=== PATIENT | female | born 1980 | race Caucasian/White ===

== ENCOUNTER 2020-07-10 03:31 | Inpatient (IN) | payer BC ==
[2020-07-10] MEDS ORDERED: Sodium Chloride 0.9% 10 ML Syringe FLUSH PRN (03:35)
[2020-07-10] MEDS ORDERED: Sodium Chloride 0.9% 10 ML SDV IV PRN (03:35)
[2020-07-10] MEDS ORDERED: Citric Acid/Sodium Citrate Solution 30 ML Cup PO ONE (03:35)
[2020-07-10] MEDS ORDERED: Sodium Chloride 0.9% 2.5 ML Syringe FLUSH PRN (03:35)
[2020-07-10] MEDS ORDERED: Oxytocin/0.9 % Sodium Chloride 30 UNIT/500 ML BAG IV SCH (03:45)
[2020-07-10] MEDS ORDERED: Lactated Ringers 1,000 ML IV SCH ×2 (03:45→09:00)
[2020-07-10] MEDS ORDERED: ceFAZolin 1 GM in Premix Bag 1 BAG IV ONE (05:30)
[2020-07-10] MEDS ORDERED: ceFAZolin 1 GM Vial ONE (07:17)
[2020-07-10] MEDS ORDERED: ePHEDrine 50 MG/ML SDV ONE (07:17)
[2020-07-10] MEDS ORDERED: Oxytocin 10 Units/1 ML SDV ONE (07:17)
[2020-07-10] MEDS ORDERED: Sodium Chloride 0.9% 20 ML ONE (07:17)
[2020-07-10] MEDS ORDERED: Ondansetron 4 MG/2 ML SDV ONE (07:17)
[2020-07-10] MEDS ORDERED: Morphine PF 10 MG/10 ML SDV ONE (07:21)
--- NOTE | 2020-07-10 07:45 | PCM.PREANE ---
Preanesthetic Assessment - Anesthesia/Transfusion/Family Hx Anesthesia History: Prior Anesthesia Without Reaction Other Type of Anesthesia Reaction Comment: Shay any known problem in past, no known family hx: problems Family History of Anesthesia Reaction: No Transfusion History: No Prior Transfusion(s) - Review of Systems General: No Symptoms Pulmonary: No Symptoms Cardiovascular: No Symptoms Gastrointestinal: No Symptoms Neurological: No Symptoms Other: Reports: None - Physical Assessment NPO Status Date: 07/09/20 Height: 5 ft 7.5 in Weight: 78.018 kg ASA Class: 2 Mental Status: Alert & Oriented x3 Airway Class: Mallampati = 1 Dentition: Reports: Normal Dentition ROM/Head Extension: Full Lungs: Clear to Auscultation, Normal Respiratory Effort Cardiovascular: Regular Rate, Regular Rhythm - Lab Values: Laboratory Last Values WBC 7.61 K/uL (4.0-11.0) 07/10/20 06:13 RBC 3.86 M/uL (4.30-5.90) L 07/10/20 06:13 Hgb 12.4 g/dL (12.0-16.0) 07/10/20 06:13 Hct 36.6 % (36.0-46.0) 07/10/20 06:13 MCV 94.8 fL (80.0-98.0) 07/10/20 06:13 MCH 32.1 pg (27.0-32.0) H 07/10/20 06:13 MCHC 33.9 g/dL (31.0-37.0) 07/10/20 06:13 RDW Std Deviation 44.5 fl (28.0-62.0) 07/10/20 06:13 RDW Coeff of Tereza 13 % (11.0-15.0) 07/10/20 06:13 Plt Count 141 K/uL (150-400) L 07/10/20 06:13 MPV 11.70 fL (7.40-12.00) 07/10/20 06:13 Nucleated RBC % 0.0 /100WBC 07/10/20 06:13 Nucleated RBCs # 0 K/uL 07/10/20 06:13 Blood Type A NEGATIVE 07/10/20 06:13 Antibody Screen POSITIVE 07/10/20 06:13 - Allergies Allergies/Adverse Reactions: Allergies Allergy/AdvReac Type Severity Reaction Status Date / Time No Known Allergies Allergy Verified 08/11/14 06:04 - Anesthesia Plan Pre-Op Medication Ordered: Antacids - Acknowledgements Anesthesia Type Planned: Spinal Pt an Appropriate Candidate for the Planned Anesthesia: Yes Alternatives and Risks of Anesthesia Discussed w Pt/Guardian: Yes Pt/Guardian Understands and Agrees with Anesthesia Plan: Yes Additional Comments: repeat elective c section PLAN: spinal with duramorph PreAnesthesia Questionnaire HEENT History: Reports: Other (See Below) Other HEENT History: wears glasses Cardiovascular History: Reports: None Respiratory History: Reports: None Gastrointestinal History: Reports: None Genitourinary History: Reports: Other (See Below) Other Genitourinary History: hx of kidney biopsy, "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, not since first , [employer] History: Reports: Musculoskeletal History: Reports: None Neurological History: Reports: None Psychiatric History: Reports: None Endocrine/Metabolic History: Reports: None Hematologic History: Reports: None Immunologic History: Reports: None Oncologic (Cancer) History: Reports: None Dermatologic History: Reports: None - Infectious Disease History Infectious Disease History: Reports: Chicken Pox - Past Surgical History Head Surgeries/Procedures: Reports: None HEENT Surgical History: Reports: None Cardiovascular Surgical History: Reports: None Respiratory Surgical History: Reports: None GI Surgical History: Reports: None Female Surgical History: Reports: Section, Other (See Below) Other Female Surgeries/Procedures: laparotomy for ovarian cystectomy, laparoscopy with ovarian wedge resection, Endocrine Surgical History: Reports: None Neurological Surgical History: Reports: None Musculoskeletal Surgical History: Reports: None Oncologic Surgical History: Reports: None Dermatological Surgical History: Reports: None - SUBSTANCE USE Tobacco Use Status *Q: Never Tobacco User - HOME MEDS Home Medications: Home Meds Ascorbic Acid [Vitamin C] 1 tab PO DAILY 08/09/14 [History] Calcium Carbonate/Vitamin D3 [Calcium 600 + Vit D 400] 1 tab PO DAILY 08/09/14 [History] Lactobacillus Acidophilus [Probiotic] 1 cap PO ASDIRECTED 08/09/14 [History] [place]-3S/DHA/Epa/Fish Oil/D3 [Fish Oil + D3 Softgel] 1 cap PO DAILY 08/09/14 [History] PNV95/Ferrous Fumarate/FA [ Multivitamins] 1 tab PO DAILY 08/09/14 [History] Vitamin B Complex 1 tab PO DAILY 08/09/14 [History] Calmag 1 tab PO DAILY 07/04/20 [History] Cyanocobalamin (Vitamin B12) [Vitamin B12] 210 mg PO DAILY 07/04/20 [History] - CURRENT (IN HOUSE) MEDS Current Meds: Current Medications Oxytocin/Sodium Chloride (Oxytocin 30 Unit/500 Ml-Ns) 30 unit in 500 mls @ 250 mls/hr IV TITRATE [facility]AM[facility] Lactated Ringer's (Ringers, Lactated) 1,000 mls @ 500 mls/hr IV BOLUS MAMADOU Last Admin: 07/10/20 07:40 Dose: 999 mls/hr Documented by: Sodium Chloride (Saline Flush) 10 ml FLUSH ASDIRECTED PRN PRN Reason: Keep Vein Open Sodium Chloride (Saline Flush) 2.5 ml FLUSH ASDIRECTED PRN PRN Reason: Keep Vein Open Sodium Chloride (Normal Saline) 10 ml IV ASDIRECTED PRN PRN Reason: IV Use Discontinued Medications Cefazolin Sodium (Ancef) Confirm Administered Dose 1 gm .ROUTE .STK-MED ONE Stop: 07/10/20 07:18 Citric Acid/Sodium Citrate (Bicitra Solution) 30 ml PO ONETIME ONE Stop: 07/10/20 03:36 Ephedrine Sulfate (Ephedrine Sulfate) Confirm Administered Dose 50 mg .ROUTE .STK-MED ONE Stop: 07/10/20 07:18 Cefazolin Sodium/Dextrose 1 gm (/ Premix) 50 mls @ 100 mls/hr IV ONETIME ONE Stop: 07/10/20 05:59 Sodium Chloride (Normal Saline) Confirm Administered Dose 20 mls @ as directed .ROUTE .STK-MED ONE Stop: 07/10/20 07:18 Morphine Sulfate (Duramorph Pf) Confirm Administered Dose 10 mg .ROUTE .STK-MED ONE Stop: 07/10/20 07:22 Ondansetron HCl (Zofran) Confirm Administered Dose 4 mg .ROUTE .STK-MED ONE Stop: 07/10/20 07:18 Oxytocin (Pitocin) Confirm Administered Dose 30 unit .ROUTE .STK-MED ONE Stop: 07/10/20 07:18
[2020-07-10] MEDS ORDERED: Acetaminophen/oxyCODONE 325-5 MG Tab PO PRN ×2 (07:47→08:59)
[2020-07-10] MEDS ORDERED: fentaNYL 100 MCG/2 ML SDV IVPUSH PRN (07:47)
[2020-07-10] MEDS ORDERED: Ketorolac 30 MG/ML SDV ONE (08:36)
[2020-07-10] MEDS ORDERED: diphenhydrAMINE 50 MG/ML SDV IVPUSH PRN (08:59)
[2020-07-10] MEDS ORDERED: Lanolin 100% Cream 7 GM Tube TOP PRN (08:59)
[2020-07-10] MEDS ORDERED: Methylergonovine 0.2 MG/1 ML Amp IM PRN (08:59)
[2020-07-10] MEDS ORDERED: Misoprostol 200 MCG Tab RECTAL PRN (08:59)
[2020-07-10] MEDS ORDERED: Ondansetron 4 MG/2 ML SDV IVPUSH PRN (08:59)
[2020-07-10] MEDS ORDERED: Ibuprofen 800 MG Tab PO PRN (08:59)
[2020-07-10] MEDS ORDERED: Bisacodyl 10 MG Supp RECTAL PRN (08:59)
[2020-07-10] MEDS ORDERED: Tranexamic Acid 1,000 MG in Sodium Chloride 0.9% 100 ML IV PRN (08:59)
[2020-07-10] MEDS ORDERED: Oxytocin 10 Units/1 ML SDV IM PRN (08:59)
--- NOTE | 2020-07-10 08:59 | PCM.OPNOTE ---
- General Post-Op/Procedure Note Date of Surgery/Procedure: 07/10/20 Operative Procedure(s): Repeat LTCS Findings: Viable male APGARs 8, 9 weight 3900 gm. Delivery intact placenta with3V cord Pre Op Diagnosis: 39 week IUP. Previous c section x3, desires repeat Post-Op Diagnosis: Same Anesthesia Technique: Spinal Primary Surgeon: Urvashi Hunter Weir Fisher: Deidra Avila Fluid Replacement, Intraop: 1,200 EBL in mLs: 800 Complications: none known Condition: Good Free Text/Narrative:: Dictation [id number]
[2020-07-10] MEDS: Ketorolac 30 MG/ML SDV IVPUSH SCH ×3 (09:28→21:17)
[2020-07-10] MEDS: Nalbuphine 10 MG/1 ML Vial IVPUSH PRN ×2 (11:26→18:16)
--- NOTE | 2020-07-10 11:34 | PCM.POSTAN ---
POST ANESTHESIA ASSESSMENT - MENTAL STATUS Mental Status: Alert, Oriented - VITAL SIGNS Vital Signs: Last Vital Signs Temp 96.8 F L 07/10/20 08:52 Pulse 73 07/10/20 09:23 Resp 12 07/10/20 09:23 BP 107/57 L 07/10/20 09:23 Pulse Ox 96 07/10/20 09:23 - RESPIRATORY Respiratory Status: Respiratory Rate WNL, Airway Patent, O2 Saturation Stable - CARDIOVASCULAR CV Status: Pulse Rate WNL, Blood Pressure Stable - GASTROINTESTINAL GI Status: No Symptoms - POST OP HYDRATION Hydration Status: Adequate & Stable
--- NOTE | 2020-07-10 15:07 | OR ---
SURGEON: Urvashi Hunter M.D. DATE OF PROCEDURE: 07/10/2020 PREOPERATIVE DIAGNOSES: 1. A 39-week intrauterine . 2. Previous section x3, desires repeat. POSTOPERATIVE DIAGNOSES: 1. A 39-week intrauterine . 2. Previous section x3, desires repeat. PROCEDURE: Repeat low transverse section. PRIMARY SURGEON: Urvashi Hunter MD DIGITAL ANALYST: Parish Avila, DISTRIBUTION SYSTEMS SUPERINTENDENT, or first assist registered nurse. ANESTHESIA: Spinal. ESTIMATED BLOOD LOSS: 600 mL. COMPLICATIONS: None known. FINDINGS: Viable male. score of 8 at one minute, 9 at five minutes. Weight of 3900 g. Delivery, intact placenta, 3-vessel cord. DISPOSITION: Infant to nursery, mom in PACU, stable. PROCEDURE DETAILS: Debra is a 40-year-old, G4, P3, at 39 weeks' gestational age, who presents today for scheduled repeat delivery. Risks of procedure have been discussed. Proper consent obtained. She is COVID negative. The patient was taken to the operating room where she underwent spinal anesthetic, was then placed in dorsal supine position with leftward tilt. SCDs to lower extremities. Isaac to gravity. Was prepped and draped in usual sterile fashion. Received Ancef prophylactically. Time-out was performed. After being prepped and draped in usual sterile fashion, anesthesia was tested, found to be adequate. Previous Pfannenstiel scar was now excised. Subcutaneous tissue was incised down to the level of the rectus fascia, which was incised in midline, lateralized on either side sharply and bluntly. The superior aspect of the fascia was tented upward, dissected sharply and bluntly away from underlying muscle. There was a fair amount of dense scar tissue along the fascia to the rectus muscle noted given previous surgery. This was repeated on the inferior aspect of the fascia. Rectus muscles were in the midline sharply and bluntly. Peritoneum was entered and dissected sharply. The rectus muscles and peritoneum were now lateralized bluntly. Uterine position and position palpated. Self-retaining retractor was gently placed. Uterovesical reflection was visualized. Bladder flap was created sharply and bluntly. Bladder was mobilized away from lower uterine segment. Low transverse hysterotomy was now performed. Uterine cavity was entered with blunt-ended scalpel. Hysterotomy was lateralized bluntly. Clear amniotic fluid was returned with amniotomy. A face presentation was noted. Therefore, the head was gently rotated to a flexed position and delivered followed by delivery of anterior shoulder, posterior shoulder, and remainder of the body without difficulty. The 's oropharynx and nares were bulb suctioned. The was crying and vigorous. Cord was clamped x2 and cut. was handed off to attending nursery staff. Cord arterial, cord venous, cord blood sampling obtained. The placenta was now delivered. There was a uterine vessel on the left side that was bleeding briskly. This was grasped with ring forceps and bleeding was controlled. The hysterotomy was now repaired using 0 Vicryl in continuous running locked fashion. Area along the uterine vessel that was bleeding was replicated with two [id number] sutures, hemostasis thereafter evident. Remainder of the hysterotomy now continued to be closed using 0 Vicryl continuous running locked fashion followed by a re-imbricating layer. Area of oozing on the right lateral aspect was replicated with [id number] suture, hemostasis evident. The posterior aspect of the uterus inspected, no defects or hematomas found be forming. Region was well irrigated, suction dried. The colonic gutters were cleared of all clot and debris, well irrigated, suction dried. Hysterotomy once again inspected, found to be hemostatic except for a few areas of serosal oozing, which were cauterized. The lower uterine segment was fairly thin given the previous sections at this time. Self-retaining tractor now gently removed. Bladder blade was now placed. Hysterotomy once inspected, found to be hemostatic. Rectus muscles and peritoneum were now reapproximated using 0 Vicryl in inverted mattress suture technique. Posterior aspect of the fascia and anterior aspect of the muscle were now closely inspected, any areas of oozing were cauterized. The rectus fascia was reapproximated using 0 Vicryl in continuous running fashion, beginning laterally on each side and meeting in the midline. Subcutaneous tissues were well irrigated, suction dried. Region was copiously irrigated, suction dried once again, any areas of oozing were cauterized. Skin edges were now reapproximated using 3-0 Vicryl on a Harvey needle in subcuticular fashion followed by half-inch Steri-Strips and Mastisol for re-imbrication. Sponge, instrument, and needle counts were correct x2. The patient tolerated the procedure well overall. She will go to PACU in stable condition, infant to nursery. FRANCISCO J / [place] /[id number]
[2020-07-10] MEDS: Simethicone 80 MG Tab.Chew PO SCH ×3 (15:16→23:55)
[2020-07-10] MEDS: Docusate Sodium 100 MG Cap PO SCH ×3 (21:18→21:20)
[2020-07-11] MEDS: Simethicone 80 MG Tab.Chew PO SCH ×4 (00:03→17:07)
[2020-07-11] MEDS: Ketorolac 30 MG/ML SDV IVPUSH SCH ×2 (04:10→10:25)
--- NOTE | 2020-07-11 08:48 | PCM.PNPP ---
- General Info Date of Service: 07/11/20 Functional Status: Reports: Pain Controlled, Tolerating Diet, Ambulating - Review of Systems General: Reports: Fatigue. Denies: Fever, Weakness Pulmonary: Denies: Shortness of Breath Cardiovascular: Denies: Chest Pain, Palpitations, Lightheadedness Gastrointestinal: Denies: Abdominal Pain, Nausea, Vomiting Genitourinary: Denies: Flank Pain Musculoskeletal: Reports: No Symptoms Skin: Reports: No Symptoms Neurological: Reports: No Symptoms Psychiatric: Reports: No Symptoms - General Info Date of Service: 07/11/20 - Patient Data Vital Signs - Most Recent: Last Vital Signs Temp 36.4 C 07/11/20 04:00 Pulse 62 07/11/20 07:00 Resp 14 07/11/20 07:00 BP 107/87 07/11/20 04:00 Pulse Ox 95 07/11/20 07:00 Weight - Most Recent: 78.018 kg I&O - Last 24 Hours: Intake & Output 07/10/20 07/11/20 07/11/20 22:59 06:59 14:59 Intake Total 1000 Output Total 550 1400 Balance 450 -1400 Lab Results - Last 24 Hours: Laboratory Results - last 24 hr 07/10/20 07/10/20 07/11/20 Range/Units 08:14 09:56 06:45 Hgb 10.9 L (12.0-16.0) g/dL Hct 32.9 L (36.0-46.0) % Cord ABG pH 7.283 (7.18-7.38) Cord ABG Base Excess -3 (-10--2) Cord VBG pH 7.350 (7.25-7.45) Cord VBG Base Excess -4 (-10--2) Rhogam Indicated NO, MOM+BABY RH NEG Med Orders - Current: Current Medications Bisacodyl (Dulcolax) 10 mg RECTAL ONETIME PRN PRN Reason: Constipation Diphenhydramine HCl (Benadryl) 25 mg IVPUSH Q6H PRN PRN Reason: Itching or Nausea Last Admin: 07/10/20 20:48 Dose: 25 mg Documented by: Docusate Sodium (Colace) 100 mg PO BID MAMADOU Last Admin: 07/10/20 21:20 Dose: 100 mg Documented by: Emollient Ointment (Lansinoh Hpa) 0 gm TOP ASDIRECTED PRN PRN Reason: Sore Nipples Last Admin: 07/10/20 23:54 Dose: 1 bottle Documented by: Oxytocin/Sodium Chloride (Oxytocin 30 Unit/500 Ml-Ns) 30 unit in 500 mls @ 250 mls/hr IV TITRATE [facility] Lactated Ringer's (Ringers, Lactated) 1,000 mls @ 500 mls/hr IV BOLUS [facility] Last Admin: 07/10/20 07:40 Dose: 999 mls/hr Documented by: Lactated Ringer's (Ringers, Lactated) 1,000 mls @ 125 mls/hr IV ASDIRECTED [facility] Last Admin: 07/10/20 11:18 Dose: 125 mls/hr Documented by: Tranexamic Acid 1,000 mg/ (Sodium Chloride) 110 mls @ 660 mls/hr IV ONETIME PRN PRN Reason: Bleeding Ibuprofen (Motrin) 800 mg PO Q8H PRN PRN Reason: mild pain or fever Ketorolac Tromethamine (Toradol) 30 mg IVPUSH Q6H [facility] Stop: 07/11/20 09:01 Last Admin: 07/11/20 04:10 Dose: 30 mg Documented by: Methylergonovine Maleate (Methergine) 0.2 mg IM ONETIME PRN PRN Reason: Excessive Vaginal Bleeding Misoprostol (Cytotec) 1,000 mcg RECTAL ONETIME PRN PRN Reason: excessive bleeding Ondansetron HCl (Zofran) 4 mg IVPUSH Q4H PRN PRN Reason: Nausea/Vomiting Oxycodone/Acetaminophen (Percocet 325-5 Mg) 1 tab PO ONETIME PRN PRN Reason: Pain (moderate 4-6) Oxycodone/Acetaminophen (Percocet 325-5 Mg) 1 tab PO Q4H PRN PRN Reason: Pain (moderate 4-6) Oxycodone/Acetaminophen (Percocet 325-5 Mg) 2 tab PO Q4H PRN PRN Reason: Pain (moderate 4-6) Oxytocin (Pitocin) 10 unit IM ASDIRECTED PRN PRN Reason: Excessive Vaginal Bleeding Simethicone (Simethicone) 160 mg PO QID [facility] Last Admin: 07/11/20 06:02 Dose: 160 mg Documented by: Sodium Chloride (Saline Flush) 10 ml FLUSH ASDIRECTED PRN PRN Reason: Keep Vein Open Sodium Chloride (Saline Flush) 2.5 ml FLUSH ASDIRECTED PRN PRN Reason: Keep Vein Open Sodium Chloride (Normal Saline) 10 ml IV ASDIRECTED PRN PRN Reason: IV Use Discontinued Medications Cefazolin Sodium (Ancef) Confirm Administered Dose 1 gm .ROUTE .STK-MED ONE Stop: 07/10/20 07:18 Citric Acid/Sodium Citrate (Bicitra Solution) 30 ml PO ONETIME ONE Stop: 07/10/20 03:36 Ephedrine Sulfate (Ephedrine Sulfate) Confirm Administered Dose 50 mg .ROUTE .STK-MED ONE Stop: 07/10/20 07:18 Fentanyl (Sublimaze) 50 mcg IVPUSH Q5M PRN PRN Reason: Pain (severe 7-10) Stop: 07/11/20 07:47 Cefazolin Sodium/Dextrose 1 gm (/ Premix) 50 mls @ 100 mls/hr IV ONETIME ONE Stop: 07/10/20 05:59 Sodium Chloride (Normal Saline) Confirm Administered Dose 20 mls @ as directed .ROUTE .STK-MED ONE Stop: 07/10/20 07:18 Ketorolac Tromethamine (Toradol) Confirm Administered Dose 30 mg .ROUTE .STK-MED ONE Stop: 07/10/20 08:37 Morphine Sulfate (Duramorph Pf) Confirm Administered Dose 10 mg .ROUTE .STK-MED ONE Stop: 07/10/20 07:22 Nalbuphine HCl (Nubain) 2.5 mg IVPUSH Q3H PRN PRN Reason: Pruritis Stop: 07/11/20 07:48 Last Admin: 07/10/20 18:16 Dose: 2.5 mg Documented by: Ondansetron HCl (Zofran) Confirm Administered Dose 4 mg .ROUTE .STK-MED ONE Stop: 07/10/20 07:18 Oxytocin (Pitocin) Confirm Administered Dose 30 unit .ROUTE .STK-MED ONE Stop: 07/10/20 07:18 - Infant Interaction Support Person: - Recovery Exam Fundal Tone: Firm Fundal Level: 1 Fingerbreadths Below Umbilicus Fundal Placement: Midline Lochia Amount: Scant Lochia Color: Rubra/Red Perineum Description: Intact, Minimal Bruising/Swelling Episiotomy/Laceration: None Bladder Status: Indwelling Catheter in Place Urinary Elimination: Indwelling Catheter - Exam General: Alert, Oriented Lungs: Normal Respiratory Effort Cardiovascular: Regular Rate, Regular Rhythm GI/Abdominal Exam: Normal Bowel Sounds, Soft Extremities: Pedal Edema (trace). No: Art's Sign Skin: Warm, Dry, Intact Psy/Mental Status: Alert, Normal Affect, Normal Mood - Problem List & Annotations (1) Status post repeat low transverse section SNOMED Code(s): 502686878, 38072614, 028376801, 527907829, 874869241 Code(s): Z98.891 - HISTORY OF UTERINE SCAR FROM PREVIOUS SURGERY Status: Acute Current Visit: Yes - Problem List Review Problem List Initiated/Reviewed/Updated: Yes - My Orders Last 24 Hours: My Active Orders 07/10/20 08:59 Patient Status [ADT] Routine Ambulate [RC] PER UNIT ROUTINE Antiembolic Devices [RC] PER UNIT ROUTINE Communication Order [RC] PER UNIT ROUTINE Communication Order [RC] PER UNIT ROUTINE Communication Order [RC] Per Unit Routine May Shower [RC] ASDIRECTED Notify Provider Intake and Out [RC] ASDIRECTED Notify Provider Vital Signs [RC] ASDIRECTED RT Incentive Spirometry [RC] Q2HWA Acetaminophen/oxyCODONE [Percocet 325-5 MG] 1 tab PO Q4H PRN Acetaminophen/oxyCODONE [Percocet 325-5 MG] 2 tab PO Q4H PRN Ibuprofen [Motrin] 800 mg PO Q8H PRN Lanolin [Lansinoh HPA] See Dose Instructions TOP ASDIRECTED PRN Methylergonovine [Methergine] 0.2 mg IM ONETIME PRN Ondansetron [Zofran] 4 mg IVPUSH Q4H PRN Oxytocin [Pitocin] 10 unit IM ASDIRECTED PRN Tranexamic Acid [Cyklokapron] 1,000 mg Sodium Chloride 0.9% [Normal Saline] 100 ml IV ONETIME bisacodyL [Dulcolax] 10 mg RECTAL ONETIME PRN diphenhydrAMINE [Benadryl] 25 mg IVPUSH Q6H PRN miSOPROStoL [Cytotec] 1,000 mcg RECTAL ONETIME PRN Abdominal Binder [OM.PC] Routine Assess Lochia [WOMSER] Per Unit Routine Assess Uterine Involution [WOMSER] Per Unit Routine Breast Pump [WOMSER] Per Unit Routine Heat Therapy [OM.PC] Routine Ice Therapy [OM.PC] Routine Peripheral IV Discontinue [OM.PC] Routine Sequential Compression Device [OM.PC] Per Unit Routine 07/10/20 09:00 Docusate Sodium [Colace] 100 mg PO BID Ketorolac [Toradol] 30 mg IVPUSH Q6H Lactated Ringers [Ringers, Lactated] 1,000 ml IV ASDIRECTED 07/10/20 Lunch Regular Diet [DIET] 07/10/20 12:00 Simethicone 160 mg PO QID - Assessment Assessment:: POD 1 status post repeat c section - Plan Plan:: VS and labs reassuring. Continue postoperative/ cares.
[2020-07-11] MEDS: Docusate Sodium 100 MG Cap PO SCH ×2 (09:22→21:24)
[2020-07-11] MEDS ORDERED: Hydrocortisone 1% Crm 30 GM Tube TOP PRN (20:53)
[2020-07-11] MEDS: Acetaminophen/oxyCODONE 325-5 MG Tab PO PRN (21:24)
[2020-07-11] MEDS ORDERED: Hydrocortisone 2.5% Crm 30 GM Tube TOP ONE (22:33)
[2020-07-12] MEDS: Simethicone 80 MG Tab.Chew PO SCH (00:36)
[2020-07-12] MEDS: Acetaminophen/oxyCODONE 325-5 MG Tab PO PRN (01:41)
[2020-07-12 08:14] VITALS: BP 121/69; PULSE 69
--- NOTE | 2020-07-12 08:21 | PCM.PNPP ---
- General Info Date of Service: 07/12/20 Functional Status: Reports: Pain Controlled, Tolerating Diet, Ambulating, Urinating - Review of Systems General: Reports: Fatigue. Denies: Fever, Weakness Pulmonary: Denies: Shortness of Breath Cardiovascular: Denies: Chest Pain, Palpitations, Lightheadedness Gastrointestinal: Denies: Abdominal Pain, Nausea, Vomiting Genitourinary: Denies: Flank Pain Musculoskeletal: Reports: No Symptoms Skin: Reports: No Symptoms Neurological: Reports: No Symptoms Psychiatric: Reports: No Symptoms - General Info Date of Service: 07/12/20 - Patient Data Vital Signs - Most Recent: Last Vital Signs Temp 36.5 C 07/12/20 08:13 Pulse 69 07/12/20 08:13 Resp 16 07/12/20 08:13 BP 121/69 07/12/20 08:13 Pulse Ox 96 07/12/20 08:13 Weight - Most Recent: 78.018 kg Med Orders - Current: Current Medications Bisacodyl (Dulcolax) 10 mg RECTAL ONETIME PRN PRN Reason: Constipation Diphenhydramine HCl (Benadryl) 25 mg IVPUSH Q6H PRN PRN Reason: Itching or Nausea Last Admin: 07/10/20 20:48 Dose: 25 mg Documented by: Docusate Sodium (Colace) 100 mg PO BID MAMADOU Last Admin: 07/11/20 21:24 Dose: 100 mg Documented by: Emollient Ointment (Lansinoh Hpa) 0 gm TOP ASDIRECTED PRN PRN Reason: Sore Nipples Last Admin: 07/10/20 23:54 Dose: 1 bottle Documented by: Hydrocortisone (Hydrocortisone 1% Crm) 0 gm TOP ASDIRECTED PRN PRN Reason: Hemorrhoids Last Admin: 07/12/20 00:38 Dose: 1 bottle Documented by: Oxytocin/Sodium Chloride (Oxytocin 30 Unit/500 Ml-Ns) 30 unit in 500 mls @ 250 mls/hr IV TITRATE MAMADOU Lactated Ringer's (Ringers, Lactated) 1,000 mls @ 500 mls/hr IV BOLUS [facility] Last Admin: 07/10/20 07:40 Dose: 999 mls/hr Documented by: Lactated Ringer's (Ringers, Lactated) 1,000 mls @ 125 mls/hr IV ASDIRECTED MAMADOU Last Admin: 07/10/20 11:18 Dose: 125 mls/hr Documented by: Tranexamic Acid 1,000 mg/ (Sodium Chloride) 110 mls @ 660 mls/hr IV ONETIME PRN PRN Reason: Bleeding Ibuprofen (Motrin) 800 mg PO Q8H PRN PRN Reason: mild pain or fever Last Admin: 07/11/20 16:29 Dose: 800 mg Documented by: Methylergonovine Maleate (Methergine) 0.2 mg IM ONETIME PRN PRN Reason: Excessive Vaginal Bleeding Misoprostol (Cytotec) 1,000 mcg RECTAL ONETIME PRN PRN Reason: excessive bleeding Ondansetron HCl (Zofran) 4 mg IVPUSH Q4H PRN PRN Reason: Nausea/Vomiting Oxycodone/Acetaminophen (Percocet 325-5 Mg) 1 tab PO ONETIME PRN PRN Reason: Pain (moderate 4-6) Oxycodone/Acetaminophen (Percocet 325-5 Mg) 1 tab PO Q4H PRN PRN Reason: Pain (moderate 4-6) Last Admin: 07/12/20 01:41 Dose: 1 tab Documented by: Oxycodone/Acetaminophen (Percocet 325-5 Mg) 2 tab PO Q4H PRN PRN Reason: Pain (moderate 4-6) Oxytocin (Pitocin) 10 unit IM ASDIRECTED PRN PRN Reason: Excessive Vaginal Bleeding Simethicone (Simethicone) 160 mg PO QID [facility] Last Admin: 07/12/20 00:36 Dose: 160 mg Documented by: Sodium Chloride (Saline Flush) 10 ml FLUSH ASDIRECTED PRN PRN Reason: Keep Vein Open Sodium Chloride (Saline Flush) 2.5 ml FLUSH ASDIRECTED PRN PRN Reason: Keep Vein Open Sodium Chloride (Normal Saline) 10 ml IV ASDIRECTED PRN PRN Reason: IV Use Discontinued Medications Cefazolin Sodium (Ancef) Confirm Administered Dose 1 gm .ROUTE .STK-MED ONE Stop: 07/10/20 07:18 Citric Acid/Sodium Citrate (Bicitra Solution) 30 ml PO ONETIME ONE Stop: 07/10/20 03:36 Ephedrine Sulfate (Ephedrine Sulfate) Confirm Administered Dose 50 mg .ROUTE .STK-MED ONE Stop: 07/10/20 07:18 Fentanyl (Sublimaze) 50 mcg IVPUSH Q5M PRN PRN Reason: Pain (severe 7-10) Stop: 07/11/20 07:47 Hydrocortisone (Proctozone-Hc 2.5% Crm) Confirm Administered Dose 30 gm TOP .STK-MED ONE Stop: 07/11/20 22:34 Last Admin: 07/11/20 22:40 Dose: 1 bottle Documented by: Cefazolin Sodium/Dextrose 1 gm (/ Premix) 50 mls @ 100 mls/hr IV ONETIME ONE Stop: 07/10/20 05:59 Sodium Chloride (Normal Saline) Confirm Administered Dose 20 mls @ as directed .ROUTE .STK-MED ONE Stop: 07/10/20 07:18 Ketorolac Tromethamine (Toradol) Confirm Administered Dose 30 mg .ROUTE .STK-MED ONE Stop: 07/10/20 08:37 Ketorolac Tromethamine (Toradol) 30 mg IVPUSH Q6H MAMADOU Stop: 07/11/20 09:01 Last Admin: 07/11/20 10:25 Dose: 30 mg Documented by: Morphine Sulfate (Duramorph Pf) Confirm Administered Dose 10 mg .ROUTE .STK-MED ONE Stop: 07/10/20 07:22 Nalbuphine HCl (Nubain) 2.5 mg IVPUSH Q3H PRN PRN Reason: Pruritis Stop: 07/11/20 07:48 Last Admin: 07/10/20 18:16 Dose: 2.5 mg Documented by: Ondansetron HCl (Zofran) Confirm Administered Dose 4 mg .ROUTE .STK-MED ONE Stop: 07/10/20 07:18 Oxytocin (Pitocin) Confirm Administered Dose 30 unit .ROUTE .STK-MED ONE Stop: 07/10/20 07:18 - Interaction Support Person: - Recovery Exam Fundal Tone: Firm Fundal Level: At Umbilicus Fundal Placement: Midline Lochia Amount: Scant Lochia Color: Rubra/Red Perineum Description: Intact, Minimal Bruising/Swelling Episiotomy/Laceration: None Bladder Status: Voiding Urinary Elimination: Voided - Exam General: Alert, Oriented Lungs: Normal Respiratory Effort, Crackles Cardiovascular: Regular Rhythm GI/Abdominal Exam: Normal Bowel Sounds, Soft Extremities: Pedal Edema (trace). No: Art's Sign Skin: Warm, Dry, Intact Wound/Incisions: Healing Well, No Drainage. No: Erythema Neurological: No New Focal Deficit Psy/Mental Status: Alert, Normal Affect, Normal Mood - Problem List & Annotations (1) Status post repeat low transverse section SNOMED Code(s): 155934138, 54062583, 379892639, 175249610, 881964356 Code(s): Z98.891 - HISTORY OF UTERINE SCAR FROM PREVIOUS SURGERY Status: Acute Current Visit: Yes - Problem List Review Problem List Initiated/Reviewed/Updated: Yes - My Orders Last 24 Hours: My Active Orders 07/11/20 20:53 Hydrocortisone [Hydrocortisone 1% Crm] 0 gm TOP ASDIRECTED PRN 07/12/20 08:19 Ready for Discharge [RC] PER UNIT ROUTINE - Assessment Assessment:: POD 2 status post repeat c section - Plan Plan:: Doing well overall. Would like to go home today. Discharge instructions reviewed. Follow up at [facility] 2 and 4 weeks. Discharge to home today.
[2020-07-12] MEDS: Docusate Sodium 100 MG Cap PO SCH (09:16)
== END 2020-07-12 12:34 | disposition home or self-care (01) | DRG 540 ==
LOC: MW.OB 03:31
PROVIDERS: ADMIT Obstetrics & Gynecology; ATTEND Obstetrics & Gynecology
PROC: 10D00Z1 Extraction of Products of Conception, Low, Open Approach (ICD-10-PCS; principal; 2020-07-10)
DX: O34.211 Maternal care for low transverse scar from previous cesarean delivery (principal); Z37.0 Single live birth; Z3A.39 39 weeks gestation of pregnancy
CPT/HCPCS: 01961; 36415; 59025; 82803; 85014; 85018; 85027; 86592; 86850; 86870; 86900; 86901; A9270-GY; J0690; J1200; J1885; J2270; J2300; J2405; J2590; J7120